=== PATIENT | male | born 1955 | race Caucasian/White ===

== ENCOUNTER 2019-04-29 12:09 | Emergency (ER) | payer MEDICARE, BC ==
[2019-04-29] MEDS ORDERED: MORPHINE SULFATE INJ 10 MG/ML VIAL IV ONE (13:04)
--- NOTE | 2019-04-29 13:20 | RAD ---
EXAM DESCRIPTION: Chest,1 View CLINICAL HISTORY: nv, vent pt COMPARISON: None. IMPRESSION: Single AP portable upright view of the chest shows mild enlargement of the cardiac silhouette without pulmonary vascular congestion. Tracheostomy tube appears in good positioning with tip at the level the clavicular heads. Right-sided PICC line is seen in place with tip in good positioning in the distal superior vena cava. Patient is mildly rotated on this exam. Lungs are normally aerated. Mild interstitial thickening in the left lower lobe could be chronic. No consolidation or acute appearing infiltrate is seen. No obvious pleural effusion or pneumothorax. Electronically signed by: Jovanni Fields MD 04/29/2019 1:18 PM CDT
[2019-04-29] MEDS ORDERED: KCL 20 MEQ/NS 1,000 ML IVS ONE (13:55)
[2019-04-29] MEDS ORDERED: fentaNYL CITRATE INJ 50 MCG/ML AMP IV ONE (14:06)
--- NOTE | 2019-04-29 16:48 | CT ---
EXAM DESCRIPTION: Abdoment/Pelvis w/o Contrast CLINICAL HISTORY: nv COMPARISON: None. TECHNIQUE: Noncontrast transaxial CT images of the abdomen and pelvis are obtained. This exam was performed according to our departmental dose-optimization program, which includes automated exposure control, adjustment of the mA and/or kV according to patient size and/or use of iterative reconstruction technique . FINDINGS: Images are moderately degraded by patient breathing motion artifact and streak artifact from the patient's arms. Visualized lung bases show areas of atelectasis or consolidation in the lower lobes left greater than right with small left pleural effusion. Severe emphysematous changes to lungs are seen. Given the limitations of a noncontrast exam the liver, spleen, pancreas, adrenal glands, and contracted gallbladder are unremarkable. Moderate vascular calcifications are seen. Multiple nonobstructing calcifications measuring less than 4 mm are seen in the calyces of the left kidney. 1.5 cm cortical cyst of the lower pole right kidney. No ureteral calcification or obstruction. Quinn catheter is seen in a contracted urinary bladder. Small amount of iatrogenic air in the urinary bladder. Prostate is mildly enlarged. Lower pelvis not well seen secondary to streak artifact from bilateral hip arthroplasties. The appendix is unremarkable. PEG tube is seen. Stomach is moderately distended with air and fluid. No wall thickening. Mildly dilated air-fluid filled loops of small bowel throughout the abdomen are seen. Colostomy in the left midabdomen. Garcia's pouch in the lower pelvis. Mild scattered diverticuli of the colon. The cecum is air-filled and mildly distended measuring 5.2 cm in the right upper quadrant. Osseous structures show no aggressive bony lesions. Gluteal calcifications adjacent to the right mid to inferior iliac bone and hip could represent sequela of prior trauma or hematoma. IMPRESSION: Air-fluid filled distention of the stomach and small bowel throughout the abdomen without definite transition point most likely represents ileus versus partial small bowel obstruction. Continued follow-up is recommended. Borderline dilated air-filled cecum. Colostomy in the left midabdomen. Nonobstructing bilateral nephrolithiasis. Bilateral lower lobe atelectasis or pneumonia left greater than right. Continued follow-up until resolution is recommended. Electronically signed by: Jovanni Fields MD 04/29/2019 4:46 PM CDT
[2019-04-29] MEDS ORDERED: PIPERACILLIN/TAZOBACTAM 3.375 GM in SODIUM CHLORIDE 0.9% 100ML 100 ML IVPB ONE (17:25)
[2019-04-29] MEDS ORDERED: METOPROLOL TARTRATE INJ 5 MG/5 ML VIAL IV ONE (17:26)
[2019-04-29] MEDS ORDERED: SODIUM CHLORIDE 0.9% 100ML 100 ML IVPB ONE (18:39)
[2019-04-29] MEDS ORDERED: PIPERACILLIN/TAZOBACTAM 3.375 GM VIAL IVPB ONE (18:39)
[2019-04-29 19:49] VITALS: O2SAT 96
[2019-04-29] MEDS ORDERED: ONDANSETRON INJ 4 MG/2 ML VIAL IV ONE (19:56)
--- NOTE | 2019-04-29 20:44 | ED.PDOC ---
History of Present Illness - General Chief Complaint: GI Problem Stated Complaint: vomiting Time Seen by Provider: 04/29/19 12:44 Source: patient Exam Limitations: clinical condition - History of Present Illness Initial Comments: the patient is a 63-year-old male presenting to emergency room secondary to nausea and vomiting for the better part of the morning. The patient is ventilator dependent. He is a recent admit to the local long-term care facility. Much of the details of his medical history is not known and we do not have previous imaging lab work her EKGs for comparison. He has apparently not had any fever. He does have a G-tube. He also has a ostomy. The patient apparently had a large stroke several months ago and was hospitalized and had a tracheostomy placed as well. He has chronic left-sided deficits but seems to move his right side fairly well. He appears to be mentating clearly. He is pleasant and cooperative. He does report significant back pain. Abdomen is initially significantly distended and tympanic. No point tenderness however. The patient's ostomy bag is very distended. it does not appear to be venting properly. He reports that was changed out yesterday. Discomfort in his abdomen did significantly improve when the ostomy bag was removed and his G-tube was uncapped. This did allow a copious amount of gas to be vented. The patient has not had any vomiting since. Timing/Duration: 4-6 hours Severity: moderate Worsening Factors: eating Associated Symptoms: malaise, nausea/vomiting Allergies/Adverse Reactions: Allergies Levofloxacin [From Levaquin] Allergy (Verified 04/29/19 12:33) Sulfa Antibiotics Allergy (Verified 04/29/19 12:33) Home Medications: Ambulatory Orders Amoxicillin & Pot Clavulanate [Augmentin Tab] 875 mg GT BID #14 tab 04/29/19 Ondansetron Odt [Zofran ODT] 4 mg PO Q8HR PRN #10 tab 04/29/19 Review of Systems - Review of Systems Review of Systems: 04/29/19 20:44 the patient does have numerous chronic problems including his long-standing low back pain. Constitutional: States: no symptoms reported EENTM: States: no symptoms reported Respiratory: States: no symptoms reported Cardiology: States: no symptoms reported Gastrointestinal/Abdominal: States: abdominal pain, nausea, vomiting Genitourinary: States: no symptoms reported - Quinn catheter is in place Musculoskeletal: States: back pain - chronic Skin: States: no symptoms reported Neurological: States: no symptoms reported Endocrine: States: no symptoms reported All other Systems: No Change from Baseline Past Medical History (General) - Patient Medical History Hx Seizures: No Hx Stroke: Yes Hx Asthma: No Hx Cardiac Disorders: Yes - atrial fibriallation Hx Hypertension: Yes Hx Diabetes: No Surgical History: other Family Medical History - Family History Mother Family History: No Known Physical Exam - Physical Exam General Appearance: Alert, Anxious, No apparent distress, Other - the patient does have a 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 Eye Exam: bilateral normal Ears, Nose, Throat: hearing grossly normal, normal ENT inspection Neck: full range of motion, supple, other - tracheostomy is in place. Respiratory: lungs clear, normal breath sounds, other - the patient is ventilator dependent. Cardiovascular/Chest: normal peripheral pulses, regular rate, rhythm, other - the patient does have trace edema to his extremities. Peripheral Pulses: radial,right: 2+, radial,left: 2+, dorsalis pedis,right: 2+, dorsalis pedis,left: 2+ Gastrointestinal/Abdominal: soft, other - abdomen is initially distended and tympanic and uncomfortable to palpation throughout. After venting of the G-tube and ostomy bag this does improve. Rectal Exam: other - Quinn catheter is in place. Extremity: normal range of motion - passive., non-tender, no calf tenderness, normal capillary refill, other - the patient has significant wasting on his left side. He does have trace edema to his extremities. Neurologic: [employer] II-XII nml as tested, alert, normal mood/affect, oriented x 3, other - flaccid paralysis of the left side Skin Exam: normal color Comments: Vital Signs - 24 hr 04/29/19 04/29/19 04/29/19 12:30 12:34 14:30 Temperature 97.6 F Pulse Rate [ 114 H left brachial] Respiratory 22 22 22 Rate Respiratory 22 22 Rate [Volume Control Data] Blood Pressure 126/68 [left brachial] O2 Sat by Pulse 92 L Oximetry 04/29/19 04/29/19 04/29/19 16:10 18:30 19:46 Temperature Pulse Rate [ 113 H left brachial] Respiratory 22 Rate Respiratory 22 22 Rate [Volume Control Data] Blood Pressure 152/93 [left brachial] O2 Sat by Pulse 96 Oximetry 04/29/19 04/29/19 20:00 20:29 Temperature Pulse Rate [ 113 H 112 H left brachial] Respiratory 22 22 Rate Respiratory Rate [Volume Control Data] Blood Pressure 144/77 144/87 [left brachial] O2 Sat by Pulse 96 Oximetry Progress - Progress Progress: 04/29/19 20:52 the patient is a 63-year-old male with a multitude of long-standing medical problems that presented primarily due to vomiting this morning. I believe the patient's primary problem was that his ostomy bag was not venting. This essentially gave a bowel obstruction picture, reflected on the CT scan that was done probably 10 minutes after the ostomy bag was decompressed.. Symptoms have greatly improved since changing out the ostomy bag and then venting his G- tube as well. He still has a little bit of queasiness but has not thrown up any since we did this. there is a question of a possible pneumonia at the left lung base. he received a dose of Zosyn here and is going to be placed on 7 days of Augmentin per G-tube. he does not appear to be having any respiratory difficulty. No difficulty with oxygenating over baseline. He does have very mild hypokalemia and did receive a dose of potassium in the IV here. He also received a liter of IV fluids for mild dehydration. He does appear to be tolerating at least small steady amounts in his G-tube at this point. Trickle feeds could be considered for the next day or 2 while his stomach is calming down. He'll be transferred back to the long-term care facility. The patient also seems to have some significant chronic back pain. I do not see any pain medications on the medication list that we received from the alf. This may need to be addressed longer term with the facility doctor. There was some question of him having some opiate withdrawal as apparently he had been receiving opiates at the facility that he was at prior. He appears to be doing well currently. We will try and get him doses of most of his evening medications per G-tube here before he goes back. we did have the patient in the emergency room for an extended period of time in order to make sure that he would do well going back to his long-term care facility. 04/29/19 20:58 09/12/19 20:59 04/29/19 20:59 [email or web address] [id number] - Results/Orders Results/Orders: chest x-ray shows no definitive new infiltrate. PICC line is in place. CT of abdomen and pelvis shows surgical changes. air and fluid levels are consistent with either partial small bowel obstruction or ileus. No obvious full-blown obstruction. No abscess.there is bilateral lower lobe atelectasis versus infiltrate with the left being greater than the right. EKG shows left axis deviation. Sinus tachycardia 114 bpm. Mild T-wave inversion in aVL. Early right bundle branch block. Poor R-wave progression. Mild left atrial dilation. No definitive ST segment or T-wave changes indicative of acute ischemia. This is the only EKG on record. Laboratory Tests 04/29/19 04/29/19 04/29/19 13:01 13:01 13:01 WBC 12.4 H RBC 3.83 L Hgb 10.4 L Hct 32.3 L MCV 84.5 MCH 27.1 MCHC 32.0 L RDW 16.6 H Plt Count 552 H MPV 7.6 Absolute Neuts (auto) 10.70 H Absolute Lymphs (auto) 1.10 Absolute Monos (auto) 0.50 Absolute Eos (auto) 0.00 Absolute Basos (auto) 0.10 Neutrophils % 86.5 H Lymphocytes % 8.8 L Monocytes % 4.0 Eosinophils % 0.1 L Basophils % 0.6 PT INR PTT (SP) Sodium 139 Potassium 3.3 L Chloride 90 L Carbon Dioxide 34 H Anion Gap 18.3 H BUN 20 H Creatinine 0.43 L BUN/Creatinine Ratio 46.5 H Random Glucose 183 H Serum Osmolality 284.8 Lactic Acid 1.1 Calcium 9.3 Magnesium 2.1 Total Bilirubin 0.4 AST 24 ALT 25 Alkaline Phosphatase 156 H Creatine Kinase 26 L CK-MB (CK-2) 2.0 CK-MB (CK-2) % Not Reportable Troponin I < 0.02 B-Natriuretic Peptide 141.0 H Serum Total Protein 8.0 Albumin 2.9 L Globulin 5.1 H Albumin/Globulin Ratio 0.6 L Amylase 39 Lipase 29 Urine Color Urine Appearance Urine pH Ur Specific [place] Urine Protein Urine Glucose (UA) Urine Ketones Urine Blood Urine Nitrite Urine Bilirubin Urine Urobilinogen Ur Leukocyte Esterase Urine RBC Urine WBC Ur Epithelial Cells Amorphous Sediment Urine Bacteria 04/29/19 04/29/19 13:01 14:25 WBC RBC Hgb Hct MCV MCH MCHC RDW Plt Count MPV Absolute Neuts (auto) Absolute Lymphs (auto) Absolute Monos (auto) Absolute Eos (auto) Absolute Basos (auto) Neutrophils % Lymphocytes % Monocytes % Eosinophils % Basophils % PT 10.5 INR 1.05 PTT (SP) 28.9 Sodium Potassium Chloride Carbon Dioxide Anion Gap BUN Creatinine BUN/Creatinine Ratio Random Glucose Serum Osmolality Lactic Acid Calcium Magnesium Total Bilirubin AST ALT Alkaline Phosphatase Creatine Kinase CK-MB (CK-2) CK-MB (CK-2) % Troponin I B-Natriuretic Peptide Serum Total Protein Albumin Globulin Albumin/Globulin Ratio Amylase Lipase Urine Color Yellow Urine Appearance Clear Urine pH >= 9.0 H* Ur Specific [place] 1.010 Urine Protein 100 H Urine Glucose (UA) Negative Urine Ketones Negative Urine Blood Negative Urine Nitrite Negative Urine Bilirubin Negative Urine Urobilinogen 0.2 Ur Leukocyte Esterase Negative Urine RBC 0-1 Urine WBC 0-1 Ur Epithelial Cells 0 Amorphous Sediment 2+ Urine Bacteria 0 Departure - Departure Clinical Impression: Ventilator associated pneumonia, Hypokalemia Nausea & vomiting Qualifiers: Vomiting type: unspecified Vomiting Intractability: non-intractable Qualified Code(s): R11.2 - Nausea with vomiting, unspecified Disposition: Discharge to SNF Condition: Serious Departure Forms: ED Discharge - Pt. Copy, Patient Portal Self Enrollment Instructions: DI for Gastritis, Pneumonia, Adult (DC) Diet: other Activity: increase activity as tolerated Referrals: DAILY QUINONES [Primary Care Provider] - 1-2 Days Prescriptions: Ondansetron Odt [Zofran ODT] 4 mg PO Q8HR PRN #10 tab PRN Reason: Nausea--Moderate Amoxicillin & Pot Clavulanate [Augmentin Tab] 875 mg GT BID #14 tab Home Medications: Ambulatory Orders Amoxicillin & Pot Clavulanate [Augmentin Tab] 875 mg GT BID #14 tab 04/29/19 Ondansetron Odt [Zofran ODT] 4 mg PO Q8HR PRN #10 tab 04/29/19 Additional Instructions: the patient is a 63-year-old male with a multitude of long-standing medical problems that presented primarily due to vomiting this morning. I believe the patient's primary problem was that his ostomy bag was not venting. This essentially gave a bowel obstruction picture, reflected on the CT scan that was done probably 10 minutes after the ostomy bag was decompressed.. Symptoms have greatly improved since changing out the ostomy bag and then venting his G- tube as well. He still has a little bit of queasiness but has not thrown up any since we did this. there is a question of a possible pneumonia at the left lung base. he received a dose of Zosyn here and is going to be placed on 7 days of Augmentin per G-tube. he does not appear to be having any respiratory difficulty. No difficulty with oxygenating over baseline. He does have very mild hypokalemia and did receive a dose of potassium in the IV here. He also received a liter of IV fluids for mild dehydration. He does appear to be tolerating at least small steady amounts in his G-tube at this point. Trickle feeds could be considered for the next day or 2 while his stomach is calming down. He'll be transferred back to the long-term care facility. The patient also seems to have some significant chronic back pain. I do not see any pain medications on the medication list that we received from the alf. This may need to be addressed longer term with the facility doctor. There was some question of him having some opiate withdrawal as apparently he had been receiving opiates at the facility that he was at prior. He appears to be doing well currently. We will try and get him doses of most of his evening medications per G-tube here before he goes back. we did have the patient in the emergency room for an extended period of time in order to make sure that he would do well going back to his long-term care facility.
[2019-04-29] MEDS ORDERED: PANTOPRAZOLE SODIUM IV 40 MG VIAL IV ONE (20:48)
[2019-04-29] MEDS ORDERED: HYDROcodone 7.5MG/APAP 325MG 1 EA TAB GT ONE (21:02)
[2019-04-29 21:46] VITALS: BP 142/100; TEMP 97.2
[2019-04-30] MEDS ORDERED: CARVEDILOL 3.125 MG TAB PO ONE (21:02)
== END 2019-04-29 21:40 ==
LOC: ER 12:09
DX: J95.851 Ventilator associated pneumonia (principal); R11.2 Nausea with vomiting, unspecified; E87.6 Hypokalemia; E86.0 Dehydration; R00.0 Tachycardia, unspecified; I45.10 Unspecified right bundle-branch block; I48.91 Unspecified atrial fibrillation; I10 Essential (primary) hypertension; Z93.1 Gastrostomy status; Z99.11 Dependence on respirator [ventilator] status; Z86.73 Personal history of transient ischemic attack (TIA), and cerebral infarction without residual deficits; Z88.1 Allergy status to other antibiotic agents; Z88.2 Allergy status to sulfonamides
CPT/HCPCS: 36415; 71045; 74176; 80053; 81001; 82150; 82550; 82553; 83605; 83690; 83735; 83880; 84484; 85025; 85610; 85730; 93005; 94002; 94770; J2405; J2543; J3010; J3480; J7050

== ENCOUNTER 2019-06-03 07:19 | Emergency (ER) | payer MEDICARE ==
[~2019-06-03 07:19] MED LIST: MIDAZOLAM INJ 5 MG/5 ML VIAL ONE; VECURONIUM BROMIDE 10 MG VIAL IV ONE; WATER FOR INJ 10 ML VIAL INJ ONE
[2019-06-03] MEDS ORDERED: SODIUM CHLORIDE 0.9% (FLUSH) 10 ML SYG IV PRN (07:24)
[2019-06-03] MEDS ORDERED: METOPROLOL TARTRATE INJ 5 MG/5 ML VIAL IV ONE (07:41)
--- NOTE | 2019-06-03 07:49 | RAD ---
CHEST, ONE VIEW XR CLINICAL HISTORY: Altered mental status. COMPARISON: Chest 04/29/2019 TECHNIQUE: AP Chest. FINDINGS: There is a large left pneumothorax with left hemidiaphragm depression indicative of tension. Significant collapse of the left lung. Right lung is clear. Right lung is hyperinflated. Heart is normal in size. No pulmonary edema. The tracheostomy is intact. The bones appear intact. IMPRESSION: 1. Large left tension pneumothorax. 06/03/2019 7:49 AM RFID ANALYST
--- NOTE | 2019-06-03 07:52 | CT ---
PROVIDED CLINICAL HISTORY/REASON FOR EXAM: AMS TECHNIQUE: Volumetric CT data of the brain was obtained without intravenous contrast. This exam was performed according to our departmental dose-optimization program, which includes automated exposure control, adjustment of the mA and/or kV according to patient size and/or use of iterative reconstruction technique. COMPARISON: None available. FINDINGS: Large area of right MCA distribution encephalomalacia, compatible with known chronic infarction. There is asymmetric dilatation of the right lateral ventricle measuring approximately 4.4 cm, when compared with the left at 2.2 cm. There is rightward midline shift of approximately 1.1 cm. There is no definite acute infarct or hemorrhage identified. Right frontal temporal craniotomy. No mass identified. The visualized paranasal sinuses are unremarkable. IMPRESSION: 1. Chronic right MCA distribution infarction and associated frontotemporal craniotomy. However there is asymmetric enlargement of the right lateral ventricle of uncertain chronicity. Findings may reflect ex vacuo dilatation or hydrocephalus (obstructive etiologies not excluded). 2. No definite acute infarction or hemorrhage identified. 3. Rightward midline shift of approximately 1.1 cm. Findings discussed with Dr. Hawkins at 7:45 AM 06/03/2019 Electronically signed by: Sony Salvador MD 06/03/2019 7:50 AM CDT
--- NOTE | 2019-06-03 07:56 | RAD ---
CHEST, ONE VIEW XR CLINICAL HISTORY: Altered mental status. COMPARISON: Chest 04/29/2019 TECHNIQUE: AP Chest. FINDINGS: There is a large left pneumothorax with left hemidiaphragm depression indicative of tension. Significant collapse of the left lung. Right lung is clear. Right lung is hyperinflated. Heart is normal in size. No pulmonary edema. The tracheostomy is intact. The bones appear intact. There are gastric shadows over the left hemidiaphragm with a gastrostomy tube. IMPRESSION: 1. Large left tension pneumothorax. Findings directly communicated to Dr. Antolin Hawkins at 0752 hours on 06/03/2019. Electronically signed by: Penny Mcdaniels DO 06/03/2019 7:54 AM CDT
[2019-06-03] MEDS ORDERED: POVIDONE IODINE 10 % 15 ML UD TOP ONE (08:03)
[2019-06-03] MEDS ORDERED: LIDOCAINE 2% W/ EPINEPHRINE 20 ML VIAL INJ ONE (08:09)
--- NOTE | 2019-06-03 08:41 | RAD ---
EXAM DESCRIPTION: Chest,1 View CLINICAL HISTORY: 63 years Male, post chest tube COMPARISON: None. TECHNIQUE: AP portable chest. FINDINGS: Heart size is large with centrally increased pulmonary vascularity. Tracheostomy tube tip is at the level of clavicles approximately 8.7 cm above the alvin. Calcified granulomas in the left upper lobe. Patchy infiltrate is seen in the left lower lobe with some spiculated areas in the lingula and peripheral left lower lobe. Patient had a CT of the abdomen which included the lower chest on April 29, 2019 which showed patchy consolidation of both lower lobes consistent with pneumonia possibly aspiration. No focal mass was seen to suggest malignancy. Left pneumothorax has been evacuated. A left chest tube is been placed with tip in the upper left thorax. Trace pleural fluid blunts the left costophrenic angle. Bones are unremarkable. IMPRESSION: Left chest tube placement with evacuation of left pneumothorax. Infiltrate in the left lower lobe. Electronically signed by: Bret Lennon MD 06/03/2019 8:40 AM CDT
[2019-06-03] MEDS ORDERED: PIPERACILLIN/TAZOBACTAM 4.5 GM in SODIUM CHLORIDE 0.9% 100ML 100 ML IVPB ONE (08:43)
[2019-06-03] MEDS ORDERED: PIPERACILLIN/TAZOBACTAM 3.375 GM VIAL IVPB ONE ×2 (08:47→08:50)
[2019-06-03] MEDS ORDERED: PIPERACILLIN/TAZOBACTAM 3.375 GM in SODIUM CHLORIDE 0.9% 100ML 100 ML IVPB ONE (08:49)
[2019-06-03] MEDS ORDERED: SODIUM CHLORIDE 0.9% 100ML 100 ML IVPB ONE (08:50)
--- NOTE | 2019-06-03 08:55 | ED.PDOC ---
History of Present Illness - General Chief Complaint: Neuro Symptoms/Deficits Stated Complaint: AMS, elevated BP Time Seen by Provider: 06/03/19 07:24 Source: patient - patient is unable to speak with his trach, but he is able to mouth questions and answer simple questions, RN notes reviewed, Vital Signs reviewed, EMS notes reviewed, family - Exam Limitations: clinical condition, language barrier - secondary to being trached - History of Present Illness Initial Comments: patient is a 63-year-old male who presents from the [facility] with shelter complaint of altered mental status and the tissue over his right craniotomy sticking out much further than usual. On arrival patient is an extremis. Patient's heart rate was in the 140s, blood pressure was 230/140. Patient was able to look around and mouth simple questions but he was confused. We rapidly obtained a CT and chest x-ray on the patient and IV access. Patient with no breath sounds on the left hand sides of the left anterior chest wall wasweekly prepped with Betadine and a 16-gauge Angiocath was introduced into the pleural and there was an immediate styles of air. She was then wrapped and 20 Mauritian c hest tube was placed on the left. Please see procedure documentation. Timing/Duration: unsure Severity: severe Improving Factors: nothing Worsening Factors: nothing Associated Symptoms: other - unable to obtain any symptoms due to patient's condition. Allergies/Adverse Reactions: Allergies Levofloxacin [From Levaquin] Allergy (Verified 04/29/19 12:33) Sulfa Antibiotics Allergy (Verified 04/29/19 12:33) Home Medications: Ambulatory Orders Amoxicillin & Pot Clavulanate [Augmentin Tab] 875 mg GT BID #14 tab 04/29/19 Ondansetron Odt [Zofran ODT] 4 mg PO Q8HR PRN #10 tab 04/29/19 Review of Systems - Review of Systems Review of Systems: 06/03/19 08:55 unable to obtain a review of systems secondary to patient's clinical condition. patient was unable to speak to me but only able to mouth simple words. Patient did state he was short of breath. Unable to Obtain Due To: condition - trach, clinical condition Past Medical History (General) - Patient Medical History Hx Seizures: No Hx Stroke: Yes Hx Asthma: No Hx Cardiac Disorders: Yes - atrial fibriallation Hx Hypertension: Yes Hx Diabetes: No Surgical History: other - status post right craniotomy - Vaccination History Hx Influenza Vaccination: - Unknown Hx Pneumococcal Vaccination: - Unknown - Social History Hx Alcohol Use: No - Activities of Daily Living Detention/Assisted Living (if applicable):: [facility] Family Medical History - Family History Mother Family History: Unknown Living Status: Unknown Physical Exam - Physical Exam General Appearance: Agitated, Alert, Anxious, Emaciated, Frail, Obvious distress, Ill Appearing Eye Exam: bilateral normal Ears, Nose, Throat: hearing grossly normal, normal ENT inspection, other - mucous membrane Neck: non-tender, full range of motion, supple, other - trach in place Respiratory: chest non-tender, respiratory distress, decreased breath sounds - no breath sounds on the left, accessory muscle use - intercostal retractions, rhonchi - rhonchi diffusely on the right Cardiovascular/Chest: normal peripheral pulses, no edema, no murmur, tachycardia Peripheral Pulses: radial,right: 2+, radial,left: 2+ Gastrointestinal/Abdominal: normal bowel sounds, non tender, soft, other - colostomy bag in place Back Exam: no CVA tenderness, no vertebral tenderness Extremity: non-tender, no pedal edema, other - patient with hand contractures bilaterally. Neurologic: alert, other - patient oriented to self and place. Skin Exam: normal color, warm/dry Progress - Progress Progress: differential diagnosis: Pneumonia, malignant hypertension, sepsis, cute [place] among others. 06/03/19 09:07 patient brought from the [facility] in extremis. He was quickly assessed and determined to have a pneumothorax on the left. This was evacuated and then a chest tube was placed. Signs improved markedly after placement of the chest tube. Labs show that he has an elevated white count of over 25,000 unknown if there is a left shift but patient was afebrile here but on repeat chest x-ray after placement of the chest tube patient was noted to have a left lower lobe pneumonia. Patient was discussed with the ED physician, Dr. Mary, at [facility] who has accepted the patient for transfer. Transferred due to the necessity of needing a neurosurgeon which we do not have here at this facility. Patient is stable for transfer. Antolin Hawkins M.D. #[id number] - Results/Orders Results/Orders: 06/03/19 07:24 IV Care:Saline Lock per Protoc QSHIFT Telemetry .ONCE Sodium Chloride 0.9% (Flush) [Saline Flush Syringe] 10 ml IV PRN PRN EKG Stat Pulse Ox Stat 06/03/19 07:25 EKG Assessment ONCE Pulse Oximetry Assessment DAILY 06/03/19 07:50 BLOOD CULTURE Stat 06/03/19 08:43 Piperacillin/Tazobactam [Zosyn] 4.5 gm Sodium Chloride 0.9% 100Ml [NS (NACL 0.9%) 100ml] 100 ml IVPB ONCE 06/03/19 08:49 Piperacillin/Tazobactam [Zosyn] 3.375 gm Sodium Chloride 0.9% 100Ml [NS (NACL 0.9%) 100ml] 100 ml IVPB ONCE 06/03/19 08:50 URINALYSIS Stat Laboratory Results - last 24 hr 06/03/19 06/03/19 07:50 07:50 WBC 25.3 H* RBC 4.75 Hgb 12.3 L Hct 39.0 L MCV 82.1 MCH 26.0 L MCHC 31.7 L RDW 17.6 H Plt Count 676 H MPV 8.1 Absolute Neuts (auto) Not Reportable Absolute Lymphs (auto) Not Reportable Absolute Monos (auto) Not Reportable Absolute Eos (auto) Not Reportable Neutrophils % Not Reportable Neutrophils % (Manual) 77.0 Lymphocytes % Not Reportable Lymphocytes % (Manual) 21.0 Monocytes % Not Reportable Monocytes % (Manual) 2.0 Eosinophils % Not Reportable Basophils % Not Reportable PT 10.3 INR 1.03 PTT (SP) 24.5 Sodium 134 L Potassium 3.9 Chloride 94 L Carbon Dioxide 26 Anion Gap 17.9 BUN 13 Creatinine 0.52 L BUN/Creatinine Ratio 25.0 H Random Glucose 250 H Serum Osmolality 276.8 Calcium 9.0 Magnesium 2.0 Total Bilirubin 0.4 Direct Bilirubin < 0.1 Indirect Bilirubin 0.3 AST 25 ALT 21 Alkaline Phosphatase 109 Creatine Kinase 61 CK-MB (CK-2) 4.0 CK-MB (CK-2) % Not Reportable Troponin I 0.03 B-Natriuretic Peptide 173.0 H Serum Total Protein 7.[address] HEAD. PROVIDED CLINICAL HISTORY/REASON FOR EXAM: AMS TECHNIQUE: Volumetric CT data of the brain was obtained without intravenous contrast. This exam was performed according to our departmental dose-optimization program, which includes automated exposure control, adjustment of the mA and/or kV according to patient size and/or use of iterative reconstruction technique. COMPARISON: None available. FINDINGS: Large area of right MCA distribution encephalomalacia, compatible with known chronic infarction. There is asymmetric dilatation of the right lateral ventricle measuring approximately 4.4 cm, when compared with the left at 2.2 cm. There is rightward midline shift of approximately 1.1 cm. There is no definite acute infarct or hemorrhage identified. Right frontal temporal craniotomy. No mass identified. The visualized paranasal sinuses are unremarkable. IMPRESSION: 1. Chronic right MCA distribution infarction and associated frontotemporal craniotomy. However there is asymmetric enlargement of the right lateral ventricle of uncertain chronicity. Findings may reflect ex vacuo dilatation or hydrocephalus (obstructive etiologies not excluded). 2. No definite acute infarction or hemorrhage identified. 3. Rightward midline shift of approximately 1.1 cm. Findings discussed with Dr. Hawkins at 7:45 AM 06/03/2019 Electronically signed by: Sony Salvador MD 06/03/2019 7:50 AM CHEST, ONE VIEW XR CLINICAL HISTORY: Altered mental status. COMPARISON: Chest 04/29/2019 TECHNIQUE: AP Chest. FINDINGS: There is a large left pneumothorax with left hemidiaphragm depression indicative of tension. Significant collapse of the left lung. Right lung is clear. Right lung is hyperinflated. Heart is normal in size. No pulmonary edema. The tracheostomy is intact. The bones appear intact. There are gastric shadows over the left hemidiaphragm with a gastrostomy tube. IMPRESSION: 1. Large left tension pneumothorax. Findings directly communicated to Dr. Antolin Hawkins at 0752 hours on 06/03/2019. Electronically signed by: Penny Mcdaniels DO 06/03/2019 7:54 AM EXAM DESCRIPTION: Chest,1 View CLINICAL HISTORY: 63 years Male, post chest tube COMPARISON: None. TECHNIQUE: AP portable chest. FINDINGS: Heart size is large with centrally increased pulmonary vascularity. Tracheostomy tube tip is at the level of clavicles approximately 8.7 cm above the alvin. Calcified granulomas in the left upper lobe. Patchy infiltrate is seen in the left lower lobe with some spiculated areas in the lingula and peripheral left lower lobe. Patient had a CT of the abdomen which included the lower chest on April 29, 2019 which showed patchy consolidation of both lower lobes consistent with pneumonia possibly aspiration. No focal mass was seen to suggest malignancy. Left pneumothorax has been evacuated. A left chest tube is been placed with tip in the upper left thorax. Trace pleural fluid blunts the left costophrenic angle. Bones are unremarkable. IMPRESSION: Left chest tube placement with evacuation of left pneumothorax. Infiltrate in the left lower lobe. Electronically signed by: Bret Lennon MD 06/03/2019 8:40 Procedures - Chest Tube Left Mid-Axillary Chest Size of Mauritian Tube (cm): 20 Chest Tube Procedure Prep: betadine prep, sterile drapes applied, sterile dressing applied Anesthesia: 1% Lidocaine w/ Epi Volume Anesthetic (cc's): 7 Styles of Air Mingo: Yes Number of Attempts: 1 Time of Successful Intubation: 08:30 Tube Drainage: see nurses notes Tube Sutured to Skin: Yes Post Procedure CXR?: Yes Progress: patient noted to have no breath sounds on the left hand side. Chest x-ray confirmed a pneumothorax. Concern for tension pneumothorax. The pneumothorax was decompressed with a 16-gauge Angiocath to the left midclavicular anterior chest wall over rib #3. There was a styles of air. Then a definitive chest tube was placed. Please see procedure note. Departure - Departure Clinical Impression: Tension pneumothorax, spontaneous Altered mental status Qualifiers: Altered mental status type: unspecified Qualified Code(s): R41.82 - Altered mental status, unspecified Leukocytosis Qualifiers: Leukocytosis type: unspecified Qualified Code(s): D72.829 - Elevated white blood cell count, unspecified Time of Disposition: 08:30 Disposition: Transfer to Hospital Condition: Serious Referrals: DAILY QUINONES [Primary Care Provider] - 1-2 Weeks Home Medications: Ambulatory Orders Amoxicillin & Pot Clavulanate [Augmentin Tab] 875 mg GT BID #14 tab 04/29/19 Ondansetron Odt [Zofran ODT] 4 mg PO Q8HR PRN #10 tab 04/29/19 Critical Care Note - Critical Care Note Total Time (mins): 80 - this did not include any time spent performing procedures. Transfer to Outside Facility - Transfer Information Decision to Transfer Date: 06/03/19 Decision to Transfer Time: 08:20 Reason for Transfer: specialized care not available Accepting Provider:: Dr. MARY Accepting Facility: [facility]
[2019-06-03 09:01] VITALS: BP 193/103
[2019-06-03 10:10] VITALS: TEMP 97.9; O2SAT 100
== END 2019-06-03 09:05 | disposition short-term general hospital (02) ==
LOC: ER 07:19
DX: J93.0 Spontaneous tension pneumothorax (principal); R41.82 Altered mental status, unspecified; D72.829 Elevated white blood cell count, unspecified; J18.9 Pneumonia, unspecified organism; I48.91 Unspecified atrial fibrillation; I10 Essential (primary) hypertension; Z98.890 Other specified postprocedural states; Z86.73 Personal history of transient ischemic attack (TIA), and cerebral infarction without residual deficits; Z88.1 Allergy status to other antibiotic agents; Z88.2 Allergy status to sulfonamides
CPT/HCPCS: 36415; 36416; 70450; 71045; 80048; 80076; 81001; 82550; 82553; 83605; 83880; 84484; 85025; 85610; 85730; 87040; 87086; 93005; 94002; A4216; J2250; J2543; J7050

== ENCOUNTER → 2019-06-12 | Outpatient (CLI) | payer MEDICARE | LOC: GOCC 16:00 | PROVIDERS: ATTEND Internal Medicine | DX: R09.3 Abnormal sputum (principal) ==

== ENCOUNTER 2019-06-25 08:38 | Emergency (ER) | payer MEDICARE ==
[2019-06-25] MEDS ORDERED: IPRATROPIUM/ALBUTEROL 3 ML VIAL NEB ONE ×3 (08:49→12:41)
[2019-06-25] MEDS ORDERED: MORPHINE SULFATE INJ 10 MG/ML VIAL IV ONE (08:51)
--- NOTE | 2019-06-25 09:01 | RAD ---
EXAM DESCRIPTION: Chest,1 View CLINICAL HISTORY: 63 years Male, sob with ventilator COMPARISON: 06/03/2019 TECHNIQUE: Single frontal view of the chest. IMPRESSION: Stable size cardiac silhouette. Partially calcified aorta. Endotracheal tube is in stable position terminating approximately 9 cm above the alvin. Hyperexpanded lungs. Right lung apex and right costophrenic angle is not included within the image margins. Improved consolidation in the lateral left lung base. Residual blunting of left costophrenic angle which may represent scarring versus pleural effusion. Interval removal of left-sided chest tube with no residual pneumothorax on the left. Thoracic spondylosis. Electronically signed by: Dae Perdue MD 06/25/2019 9:00 AM [employer]
[2019-06-25] MEDS ORDERED: ALBUTEROL SULFATE 2.5 MG/3 ML VIAL NEB ONE (10:08)
[2019-06-25 10:27] VITALS: O2SAT 95
--- NOTE | 2019-06-25 10:43 | ED.PDOC ---
History of Present Illness - General Chief Complaint: Respiratory Problem Stated Complaint: Shortness of breath, chest discomfort Time Seen by Provider: 06/25/19 08:39 Source: patient Exam Limitations: no limitations - History of Present Illness Initial Comments: the patient is a 63-year-old male last seen one time previously presenting to the emergency room secondary to respiratory distress. The patient was having significant shortness of breath. He was having significant tachycardia with heart rates up into the 140s. The patient's obviously anxious and anxiety has been a problem before. His abdomen is distended as well. He is moving very little air bilaterally. They apparently had some difficulty with some of the equipment at the [facility] where he is on a ventilator. The difficulty has apparently been iron doubt at this point. Additionally EMS removed a plug from his airway with suction. respiratory here removed a large plug from around the trach orally. This allowed for the tracheostomy to seal and the patient to be ventilated more adequately. With these measures and the addition of a couple of DuoNeb treatments the patient is breathing much more easily and is resting comfortably. Timing/Duration: 1-3 hours Severity: severe Improving Factors: medication Worsening Factors: nothing Associated Symptoms: chest pain - right sided where he had the previous pneumothorax, diaphoresis, shortness of breath Allergies/Adverse Reactions: Allergies Levofloxacin [From Levaquin] Allergy (Verified 06/25/19 08:46) Sulfa Antibiotics Allergy (Verified 06/25/19 08:46) Home Medications: Ambulatory Orders Amoxicillin & Pot Clavulanate [Augmentin Tab] 875 mg GT BID #14 tab 04/29/19 Ondansetron Odt [Zofran ODT] 4 mg PO Q8HR PRN #10 tab 04/29/19 Review of Systems - Review of Systems Constitutional: States: no symptoms reported EENTM: States: no symptoms reported Respiratory: States: see HPI Cardiology: States: chest pain - ight-sided Gastrointestinal/Abdominal: States: see HPI Genitourinary: States: no symptoms reported Musculoskeletal: States: no symptoms reported Skin: States: no symptoms reported Neurological: States: anxiety Endocrine: States: no symptoms reported All other Systems: No Change from Baseline Past Medical History (General) - Patient Medical History Hx Seizures: No Hx Stroke: Yes Hx Asthma: No Hx Cardiac Disorders: Yes - atrial fib Hx Hypertension: Yes Hx Diabetes: No - Vaccination History Hx Influenza Vaccination: - Unknown Hx Pneumococcal Vaccination: - Unknown - Social History Hx Tobacco Use: Yes Hx Alcohol Use: No - Activities of Daily Living Detention/Assisted Living (if applicable):: [facility] Family Medical History - Family History Mother Family History: Unknown Living Status: Unknown Physical Exam - Physical Exam General Appearance: Alert, Anxious, Obvious distress, Ill Appearing, Other - he patient is diaphoretic and highly anxious. previous surgeries on the skull was noted. Eye Exam: bilateral normal Ears, Nose, Throat: hearing grossly normal Neck: non-tender, supple, other - racheostomy is in place. Respiratory: respiratory distress, accessory muscle use, other - wheezing with very little air movement. Cardiovascular/Chest: normal peripheral pulses, no edema, tachycardia - inus tachycardia on telemetry Peripheral Pulses: radial,right: 2+, radial,left: 2+ Gastrointestinal/Abdominal: soft, other - abdomen is distended. Colostomy bag is taut with air. Surgery sites noted. Rectal Exam: deferred Extremity: normal range of motion - given his chronic state, no pedal edema, other Neurologic: alert, oriented x 3, other - he patient is highly agitated and anxious. Chronic neurological changes from his previous insult. Skin Exam: normal color Comments: Vital Signs - 24 hr 06/25/19 06/25/19 06/25/19 08:49 08:53 10:00 Pulse Rate [ 110 H 110 H 90 Monitor] Respiratory 22 22 22 Rate Blood Pressure 188/96 63/42 [L brachial] O2 Sat by Pulse 93 L 95 Oximetry blood pressures have come back up to the 90s over 60s. The low blood pressure was with the dosing of morphine.he does have a history of low blood pressure chronically, except when he gets worked up. Progress - Progress Progress: 06/25/19 10:52 the patient is a 63-year-old male brought in by EMS secondary to respiratory distress. The patient is on a ventilator but they were having dif ficulty ventilating him due to some technical difficulties with her equipment along with the fact that the patient had several mucous plugs that had to be removed. These were removed by EMS and by respiratory therapy here. Additionally the patient did much better after a couple of DuoNeb treatments. He is resting comfortably. He did have a low blood pressure reading after a 2 mg dose of morphine. For future reference, dosing at 1 mg a suffice. Blood pressures have corrected. The patient is resting comfortably. the patient did have significant abdominal distention upon arrival which may have contributed to the sensation of shortness of breath. We did vent his abdominal ostomies and this did help significantly with him resting more comfortably. No evidence of other acute pathology at this time. He will be allowed to return to the long- term care facility. ER warnings were given. Follow up with the facility doctor early next week. I would recommend a breathing treatment at least every 6 hours on this patient in general. He does appear to respond significantly to them. [email or web address] [id number] 06/25/19 10:56 critical care time spent on the patient is 40 minutes for respiratory distress excluding otherwise billable procedures. - Results/Orders Results/Orders: chest x-ray shows no pneumothorax. No new infiltrate. No obvious new chest pathology. Tracheostomy is in place. EKG: Initial EKGs were more difficult to read secondary to patient tremor and anxiety. Initial EKG showed a heart rate of 109. Sinus tachycardia. Chronic mild left axis deviation. No definitive ST segment changes indicative of ischemia. Mild early right bundle branch block. Slow R-wave progression. This is consistent with previous EKGs. Repeat EKG obtained one hour later when the patient was relaxed showed a normal sinus rhythm at 93 bpm. No other changes on the EKG when compared to previous. No evidence of acute ischemia. Laboratory Results - last 24 hr 06/25/19 06/25/19 06/25/19 09:12 09:12 09:12 WBC 13.7 H RBC 4.27 L Hgb 10.9 L Hct 34.3 L MCV 80.5 MCH 25.6 L MCHC 31.8 L RDW 18.4 H Plt Count 482 H MPV 8.2 Absolute Neuts (auto) 10.90 H Absolute Lymphs (auto) 1.50 Absolute Monos (auto) 0.90 H Absolute Eos (auto) 0.20 Absolute Basos (auto) 0.20 H Neutrophils % 79.8 H Lymphocytes % 10.6 L Monocytes % 6.9 Eosinophils % 1.6 Basophils % 1.1 PT 10.1 INR 1.01 PTT (SP) 25.9 Sodium 134 L Potassium 4.6 Chloride 93 L Carbon Dioxide 26 Anion Gap 19.6 H BUN 30 H Creatinine 0.65 BUN/Creatinine Ratio 46.2 H Random Glucose 214 H Serum Osmolality 280.8 Lactic Acid Calcium 9.7 Magnesium 2.0 Total Bilirubin 0.4 AST 18 ALT 23 Alkaline Phosphatase 91 Creatine Kinase 33 L CK-MB (CK-2) 1.8 CK-MB (CK-2) % Not Reportable Troponin I < 0.02 B-Natriuretic Peptide 106.0 H Serum Total Protein 8.1 Albumin 3.2 Globulin 4.9 H Albumin/Globulin Ratio 0.7 L 06/25/19 09:12 WBC RBC Hgb Hct MCV MCH MCHC RDW Plt Count MPV Absolute Neuts (auto) Absolute Lymphs (auto) Absolute Monos (auto) Absolute Eos (auto) Absolute Basos (auto) Neutrophils % Lymphocytes % Monocytes % Eosinophils % Basophils % PT INR PTT (SP) Sodium Potassium Chloride Carbon Dioxide Anion Gap BUN Creatinine BUN/Creatinine Ratio Random Glucose Serum Osmolality Lactic Acid 1.1 Calcium Magnesium Total Bilirubin AST ALT Alkaline Phosphatase Creatine Kinase CK-MB (CK-2) CK-MB (CK-2) % Troponin I B-Natriuretic Peptide Serum Total Protein Albumin Globulin Albumin/Globulin Ratio Departure - Departure Clinical Impression: Respiratory distress, Ventilator dependent, Anxiety about health, Mucus plugging of bronchi Reactive airway disease Qualifiers: Asthma severity: severe Asthma persistence: persistent Asthma complication type: with acute exacerbation Qualified Code(s): J45.51 - Severe persistent asthma with (acute) exacerbation Disposition: Discharge to SNF Condition: Poor Departure Forms: ED Discharge - Pt. Copy, Patient Portal Self Enrollment Instructions: Intubation and Mechanical Ventilation (DC) Diet: other Referrals: DAILY QUINONES [Primary Care Provider] - 1-5 Days Home Medications: Ambulatory Orders Amoxicillin & Pot Clavulanate [Augmentin Tab] 875 mg GT BID #14 tab 04/29/19 Ondansetron Odt [Zofran ODT] 4 mg PO Q8HR PRN #10 tab 04/29/19 Additional Instructions: the patient is a 63-year-old male brought in by EMS secondary to respiratory distress. The patient is on a ventilator but they were having difficulty ventilating him due to some technical difficulties with her equipment along with the fact that the patient had several mucous plugs that had to be removed. These were removed by EMS and by respiratory therapy here. Additionally the patient did much better after a couple of DuoNeb treatments. He is resting comfortably. He did have a low blood pressure reading after a 2 mg dose of morphine. For future reference, dosing at 1 mg a suffice. Blood pressures have corrected. The patient is resting comfortably. the patient did have significant abdominal distention upon arrival which may have contributed to the sensation of shortness of breath. We did vent his abdominal ostomies and this did help significantly with him resting more comfortably. No evidence of other acute pathology at this time. He will be allowed to return to the long- term care facility. ER warnings were given. Follow up with the facility doctor early next week. I would recommend a breathing treatment at least every 6 hours on this patient in general. He does appear to respond significantly to them.
[2019-06-25 11:56] VITALS: BP 101/55; TEMP 97
== END 2019-06-25 11:20 ==
LOC: ER 08:38
DX: J45.51 Severe persistent asthma with (acute) exacerbation (principal); R06.03 Acute respiratory distress; T17.590A Other foreign object in bronchus causing asphyxiation, initial encounter; R07.89 Other chest pain; F41.9 Anxiety disorder, unspecified; R00.0 Tachycardia, unspecified; I45.10 Unspecified right bundle-branch block; I48.91 Unspecified atrial fibrillation; I10 Essential (primary) hypertension; Z99.11 Dependence on respirator [ventilator] status; Z86.73 Personal history of transient ischemic attack (TIA), and cerebral infarction without residual deficits; Z87.891 Personal history of nicotine dependence; Z79.899 Other long term (current) drug therapy; Z88.2 Allergy status to sulfonamides; Z88.1 Allergy status to other antibiotic agents
CPT/HCPCS: 36415; 71045; 80053; 82550; 82553; 83605; 83735; 83880; 84484; 85025; 85610; 85730; 93005; 94640; 94770; J2270; J7611; J7620

== ENCOUNTER 2019-07-23 07:38 | Emergency (ER) | payer MEDICARE ==
[2019-07-23] MEDS ORDERED: IPRATROPIUM/ALBUTEROL 3 ML VIAL NEB ONE (07:46)
[2019-07-23] MEDS ORDERED: SODIUM CHLORIDE 0.9% 1000ML 1,000 ML IVS ONE ×2 (09:16→09:35)
[2019-07-23] MEDS ORDERED: ONDANSETRON INJ 4 MG/2 ML VIAL IV ONE (09:27)
--- NOTE | 2019-07-23 09:35 | RAD ---
EXAM DESCRIPTION: Abdomen Series CLINICAL HISTORY: nv 2 days COMPARISON: None. FINDINGS: AP supine and upright views of the abdomen show air-filled moderate to severely dilated loops of small bowel throughout the central abdomen. Small amount of air and stool is seen in the left colon. Gastrostomy tube is seen in place. Patient is moderately rotated on this exam. No free intraperitoneal air. Postsurgical changes to the lower lumbar spine are seen with bilateral hip arthroplasties. Single AP portable upright view of the chest shows cardiac silhouette and pulmonary vasculature to be within normal limits. Lungs are normally aerated. Tracheostomy tube is seen in good positioning with tip at the level of the clavicular heads. Asymmetric interstitial thickening in the left perihilar and left lower lobe region are seen. No pleural effusion or pneumothorax. IMPRESSION: Air-filled dilated loops of small bowel throughout the abdomen are seen suggesting high-grade distal small bowel obstruction. Consider further evaluation with CT imaging. Interstitial airspace densities in the left perihilar and left lower lobe region are seen suggesting pneumonia and/or atelectasis. Findings on this exam were called to Dr. Tray Tran at 07/23/2019 9:33 AM ANALYSIS CONSULTANT. Electronically signed by: Jovanni Fields MD 07/23/2019 9:34 AM ANALYSIS CONSULTANT
[2019-07-23] MEDS ORDERED: PIPERACILLIN/TAZOBACTAM 3.375 GM in SODIUM CHLORIDE 0.9% 100ML 100 ML IVPB ONE (10:42)
--- NOTE | 2019-07-23 10:48 | ED.PDOC ---
History of Present Illness - General Chief Complaint: GI Problem Stated Complaint: Vomiting x 3 days, confusion Time Seen by Provider: 07/23/19 07:36 Source: patient Exam Limitations: clinical condition - History of Present Illness Initial Comments: the patient is a 63-year-old male sent over from the long-term care ventilator facility secondary to 3 days of nausea and vomiting. Caregivers also report this morning that he was having some confusion thinking he was in [place]. By the time he arrives here he is alert and oriented. he was apparently just started on Reglan a couple of days ago as well. He definitely has some anxiety, as he usually does. But he is pleasant and cooperative. He does have some significant abdominal distention and diffuse abdominal discomfort. There is some output in his ostomy bag. Vital signs appear stable. The patient is as always complaining of chronic back pain. About a month and a half ago, the patient apparently developed a left-sided pneumothorax with an associated pneumonia. It appears he is finishing up treatment for that with doxycycline. No definite fevers. No new shortness of breath. He is on a ventilator but can function for short periods of time on a trach collar. he has a Quinn catheter and secondary to prostate issues. I believe his colostomy bag is due to a resection from perforated diverticuli. He has chronic left-sided deficits due to a hemorrhagic stroke in the past. Additionally, as has been discovered before he is very sensitive from a blood pressure standpoint to any opiate medications. Historically the patient has a habit forming small blood clots and excessive secretions around his tracheostomy bowl that need to be suctioned periodically or the bulb does not create a adequate seal for ventilation. He also has a history of having multiple ventilator associated pneumonias. He does have a history of COPD. He does have significant anxiety and apparently a history of either schizophrenia or bipolar disorder. He apparently did have seizures after the hemorrhagic stroke. I'm uncertain when his last seizure was. He has also had a history of atrial fibrillation in the past but does not appear to currently be on any blood thinners. He has had multiple bronchial plugs in the past. There is a report of type 2 diabetes and his past but no current medications for diabetes. Timing/Duration: other - 3 days Severity: moderate Improving Factors: nothing Worsening Factors: nothing Associated Symptoms: loss of appetite, malaise, nausea/vomiting Allergies/Adverse Reactions: Allergies Levofloxacin [From Levaquin] Allergy (Verified 07/23/19 08:00) Sulfa Antibiotics Allergy (Verified 07/23/19 08:00) Home Medications: Ambulatory Orders Acetaminophen [Acetaminophen Extra Stren] 1,000 mg PEG Q8H PRN 07/23/19 Acetylcystein 20 % [Mucomyst] 2 ml INH BID 07/23/19 Alum & Mag Hydrox-Simethicone [Mylanta Maximum Strength 400-400-40 mg/5Ml] 30 ml PEG Q8H 07/23/19 Budesonide (Inhalation) [Budesonide] 0.25 mg INH BID 07/23/19 Clonazepam [Clonazepam Odt] 0.25 mg PEG BEDTIME 07/23/19 Clonidine [Clonidine HCl] 0.2 mg TD Q24H 07/23/19 Doxycycline Hyclate 100 mg PEG BID 07/23/19 Duloxetine HCl 60 mg PEG DAILY 07/23/19 Famotidine 40 mg PEG DAILY 07/23/19 Hydrocodone-Acetaminophen [[place] 5-325 mg] 1 tab PO Q6H PRN 07/23/19 Ipratropium-Albuterol [Ipratropium [place]/Albut] 1 pratik IN Q6H 07/23/19 Levetiracetam 1,000 mg PEG BID 07/23/19 Lidocaine 1% [Xylocaine] 2 ml NEB Q6H 07/23/19 Lisinopril 20 mg PEG DAILY 07/23/19 Metoclopramide HCl [Reglan] 10 mg PEG TID 07/23/19 Ondansetron Odt [Zofran ODT] 8 mg PO Q8H PRN 07/23/19 Promethazine HCl 25 mg PEG Q6H PRN 07/23/19 QUEtiapine FUMARATE [SEROquel] 25 mg PEG BEDTIME 07/23/19 Sotalol HCl 80 mg PEG BID 07/23/19 guaiFENesin 100 MG/5 ML [Robitussin] 30 ml PEG Q8H 07/23/19 hydrALAZINE HCl [(None)] 25 mg PEG TID 07/23/19 Review of Systems - Review of Systems Constitutional: States: malaise, weakness EENTM: States: no symptoms reported Respiratory: States: short of breath - chronic Cardiology: States: no symptoms reported Gastrointestinal/Abdominal: States: abdominal pain, nausea, vomiting Genitourinary: States: see HPI Musculoskeletal: States: see HPI Skin: States: no symptoms reported Neurological: States: see HPI Endocrine: States: no symptoms reported All other Systems: No Change from Baseline Past Medical History (General) - Patient Medical History Hx Seizures: No Hx Stroke: Yes Hx Asthma: No Hx of COPD: Yes Hx Cardiac Disorders: Yes - atrial fib Hx Hypertension: Yes Hx Diabetes: Yes Hx Gastroesophageal Reflux: Yes - Hx diverticulitis Surgical History: other - Vaccination History Hx Influenza Vaccination: Yes - 04/28/19 Hx Pneumococcal Vaccination: - Unknown - Social History Hx Tobacco Use: Yes Hx Alcohol Use: No - Activities of Daily Living Senior Care[facility]Assisted [facility] (if applicable):: [facility] Family Medical History - Family History Mother Family History: Unknown Living Status: Unknown Physical Exam - Physical Exam General Appearance: Alert, No apparent distress - no obvious physical distress though he is anxious Eye Exam: bilateral normal Ears, Nose, Throat: hearing grossly normal, normal pharynx Neck: non-tender, supple, other - tracheostomy is in place Respiratory: no respiratory distress, no accessory muscle use, other - mild scattered rhonchi. Fair air movement on the ventilator. Breasts are significantly more shallow when left to a trach collar. Cardiovascular/Chest: normal peripheral pulses, regular rate, rhythm, no edema Peripheral Pulses: radial,right: 2+, radial,left: 2+ Gastrointestinal/Abdominal: other - distended and tympanic. Diffuse discomfort to palpation. G-tube and ostomy bag are in place. Rectal Exam: deferred Extremity: no calf tenderness, normal capillary refill, other - chronic left- sided deficits related to his previous stroke. He seems to move the right extremity much better. Neurologic: order dispatcher II-XII nml as tested, alert, oriented x 3, other - chronic changes related to his previous hemorrhagic stroke. He does have significant anxiety. Skin Exam: normal color Comments: Vital Signs - 8 hr 07/23/19 07/23/19 07/23/19 07:38 08:00 09:00 Temperature 97.8 F Pulse Rate [ 69 88 73 Right Radial] Respiratory 25 H 22 22 Rate Blood Pressure 121/79 138/83 119/67 [Right Arm] O2 Sat by Pulse 94 L 92 L 91 L Oximetry 07/23/19 10:00 Temperature Pulse Rate [ 95 H Right Radial] Respiratory 22 Rate Blood Pressure 109/67 [Right Arm] O2 Sat by Pulse 95 Oximetry Progress - Progress Progress: 07/23/19 10:52 the patient's 63-year-old male presented to emergency room with what appears to be a small bowel obstruction of about 3 days' duration. He is ventilator dependent but his respiratory status appears to be essentially baseline. We were able to suction a significant amount of material adjacent to the tracheostomy bulb and his tracheostomy is now sealing better for ventilation purposes. his G-tube was removed and a NG tube was placed in its place to about 14 cm for decompression. We have removed about a liter of material so far. He is feeling a little better. White blood cell count is mildly elevated at 16,000. The lowest we have him on record here is 12,000. He is already on doxycycline apparently to finish up treatment for pneumonia. He did receive a dose of Zosyn here. Blood and sputum cultures have been performed. Quinn catheter remains in place. The patient is being transferred for a small bowel obstruction. We have not had any further vomiting since the start of decompression. He has received about 1200 cc of IV fluid so far. Transferred for higher level of care. - Results/Orders Results/Orders: acute abdominal series shows questionable left perihilar infiltrate. Again the patient did have a pneumothorax and pneumonia on that side about a month ago. Abdominal x-rays show what appear to be a small bowel obstruction. No perforation. Laboratory Tests 07/23/19 07/23/19 07/23/19 08:30 08:50 08:50 WBC 16.2 H RBC 4.41 L Hgb 11.0 L Hct 34.8 L MCV 78.8 L MCH 24.9 L MCHC 31.7 L RDW 17.8 H Plt Count 643 H MPV 7.8 Absolute Neuts (auto) 12.80 H Absolute Lymphs (auto) 1.80 Absolute Monos (auto) 1.50 H Absolute Eos (auto) 0.00 Absolute Basos (auto) 0.10 Neutrophils % 79.2 H Lymphocytes % 10.9 L Monocytes % 9.1 H Eosinophils % 0.2 L Basophils % 0.6 Normal RBC Morphology Stain quality accept Sodium 140 Potassium 4.8 Chloride 92 L Carbon Dioxide 33 H Anion Gap 19.8 H BUN 41 H Creatinine 1.07 BUN/Creatinine Ratio 38.3 H Random Glucose 145 H Serum Osmolality 292.1 Lactic Acid 1.4 Calcium 10.2 Magnesium 2.5 Total Bilirubin 0.4 AST 20 ALT 23 Alkaline Phosphatase 76 Creatine Kinase 29 L CK-MB (CK-2) 4.2 CK-MB (CK-2) % Not Reportable Troponin I < 0.02 B-Natriuretic Peptide 166.0 H Serum Total Protein 8.7 H Albumin 3.1 L Globulin 5.6 H Albumin/Globulin Ratio 0.6 L Amylase 46 Lipase 29 Departure - Departure Clinical Impression: Ventilator dependent, Small bowel obstruction Disposition: Transfer to Hospital Condition: Fair Departure Forms: ED Discharge - Pt. Copy, Patient Portal Self Enrollment Referrals: DAILY QUINONES [Primary Care Provider] - 1-2 Weeks Home Medications: Ambulatory Orders Acetaminophen [Acetaminophen Extra Stren] 1,000 mg PEG Q8H PRN 07/23/19 Acetylcystein 20 % [Mucomyst] 2 ml INH BID 07/23/19 Alum & Mag Hydrox-Simethicone [Mylanta Maximum Strength 400-400-40 mg/5Ml] 30 ml PEG Q8H 07/23/19 Budesonide (Inhalation) [Budesonide] 0.25 mg INH BID 07/23/19 Clonazepam [Clonazepam Odt] 0.25 mg PEG BEDTIME 07/23/19 Clonidine [Clonidine HCl] 0.2 mg TD Q24H 07/23/19 Doxycycline Hyclate 100 mg PEG BID 07/23/19 Duloxetine HCl 60 mg PEG DAILY 07/23/19 Famotidine 40 mg PEG DAILY 07/23/19 Hydrocodone-Acetaminophen [[place] 5-325 mg] 1 tab PO Q6H PRN 07/23/19 Ipratropium-Albuterol [Ipratropium [place]/Albut] 1 pratik IN Q6H 07/23/19 Levetiracetam 1,000 mg PEG BID 07/23/19 Lidocaine 1% [Xylocaine] 2 ml NEB Q6H 07/23/19 Lisinopril 20 mg PEG DAILY 07/23/19 Metoclopramide HCl [Reglan] 10 mg PEG TID 07/23/19 Ondansetron Odt [Zofran ODT] 8 mg PO Q8H PRN 07/23/19 Promethazine HCl 25 mg PEG Q6H PRN 07/23/19 QUEtiapine FUMARATE [SEROquel] 25 mg PEG BEDTIME 07/23/19 Sotalol HCl 80 mg PEG BID 07/23/19 guaiFENesin 100 MG/5 ML [Robitussin] 30 ml PEG Q8H 07/23/19 hydrALAZINE HCl [(None)] 25 mg PEG TID 07/23/19 Transfer to Outside Facility - Transfer Information Decision to Transfer Date: 07/23/19 Decision to Transfer Time: 10:56 Reason for Transfer: required specialist not available Accepting Provider:: dr lemus Accepting Facility: [facility]
[2019-07-23] MEDS ORDERED: PIPERACILLIN/TAZOBACTAM 3.375 GM VIAL IVPB ONE (10:59)
[2019-07-23] MEDS ORDERED: SODIUM CHLORIDE 0.9% 100ML 100 ML IVPB ONE (10:59)
[2019-07-23 11:07] VITALS: TEMP 98; O2SAT 99
[2019-07-23 12:22] VITALS: BP 122/77
== END 2019-07-23 11:35 | disposition short-term general hospital (02) ==
LOC: ER 07:38
DX: K56.609 Unspecified intestinal obstruction, unspecified as to partial versus complete obstruction (principal); R11.2 Nausea with vomiting, unspecified; I45.81 Long QT syndrome; R41.0 Disorientation, unspecified; I69.398 Other sequelae of cerebral infarction; F41.9 Anxiety disorder, unspecified; J44.9 Chronic obstructive pulmonary disease, unspecified; R56.9 Unspecified convulsions; I10 Essential (primary) hypertension; K21.9 Gastro-esophageal reflux disease without esophagitis; Z93.3 Colostomy status; Z99.11 Dependence on respirator [ventilator] status; Z93.1 Gastrostomy status; Z87.891 Personal history of nicotine dependence; Z79.899 Other long term (current) drug therapy; Z87.01 Personal history of pneumonia (recurrent)
CPT/HCPCS: 36415; 74019; 80053; 81001; 82150; 82550; 82553; 83605; 83690; 83735; 83880; 84484; 85025; 87040; 87077; 87086; 87186; 87502; 93005; 94002; 94640; 94770; J2405; J2543; J7030; J7050; J7620

== ENCOUNTER 2019-08-15 16:59 | Emergency (ER) | payer MEDICARE ==
[2019-08-15 17:19] VITALS: BP 0/0; TEMP 0; O2SAT 0
--- NOTE | 2019-08-15 17:19 | ED.PDOC ---
History of Present Illness - General Chief Complaint: Cardiac Respiratory Arrest Stated Complaint: Cardiac arrest/asystole Time Seen by Provider: 08/15/19 17:17 - History of Present Illness Initial Comments: 63-year-old male arrives via EMS CPR in progress after being found unresponsive, [facility]. Unclear events prior to CPR initiated, received bystander CPR, on EMS arrival was in asystole, chest compression assist device applied, i/o access obtained, 3 rounds of epi provided enroute while receiving bag-trach ventilation. no change in rhythm. Hx is otherwise limited. Allergies/Adverse Reactions: Allergies Levofloxacin [From Levaquin] Allergy (Verified 07/23/19 08:00) Sulfa Antibiotics Allergy (Verified 07/23/19 08:00) Home Medications: Ambulatory Orders Acetaminophen [Acetaminophen Extra Stren] 1,000 mg PEG Q8H PRN 07/23/19 Acetylcystein 20 % [Mucomyst] 2 ml INH BID 07/23/19 Alum & Mag Hydrox-Simethicone [Mylanta Maximum Strength 400-400-40 mg/5Ml] 30 ml PEG Q8H 07/23/19 Budesonide (Inhalation) [Budesonide] 0.25 mg INH BID 07/23/19 Clonazepam [Clonazepam Odt] 0.25 mg PEG BEDTIME 07/23/19 Clonidine [Clonidine HCl] 0.2 mg TD Q24H 07/23/19 Doxycycline Hyclate 100 mg PEG BID 07/23/19 Duloxetine HCl 60 mg PEG DAILY 07/23/19 Famotidine 40 mg PEG DAILY 07/23/19 Hydrocodone-Acetaminophen [[place] 5-325 mg] 1 tab PO Q6H PRN 07/23/19 Ipratropium-Albuterol [Ipratropium [place]/Albut] 1 pratik IN Q6H 07/23/19 Levetiracetam 1,000 mg PEG BID 07/23/19 Lidocaine 1% [Xylocaine] 2 ml NEB Q6H 07/23/19 Lisinopril 20 mg PEG DAILY 07/23/19 Metoclopramide HCl [Reglan] 10 mg PEG TID 07/23/19 Ondansetron Odt [Zofran ODT] 8 mg PO Q8H PRN 07/23/19 Promethazine HCl 25 mg PEG Q6H PRN 07/23/19 QUEtiapine FUMARATE [SEROquel] 25 mg PEG BEDTIME 07/23/19 Sotalol HCl 80 mg PEG BID 07/23/19 guaiFENesin 100 MG/5 ML [Robitussin] 30 ml PEG Q8H 07/23/19 hydrALAZINE HCl [(None)] 25 mg PEG TID 07/23/19 Review of Systems - Review of Systems Review of Systems: 08/15/19 17:31 limited by his critical illness, CPR underway Past Medical History (General) - Patient Medical History Hx Seizures: No Hx Stroke: Yes Hx Asthma: No Hx of COPD: Yes Hx Cardiac Disorders: Yes - atrial fib Hx Hypertension: Yes Hx Diabetes: Yes Hx Gastroesophageal Reflux: Yes - Hx diverticulitis - Vaccination History Hx Influenza Vaccination: Yes - 04/28/19 Hx Pneumococcal Vaccination: - Unknown - Social History Hx Tobacco Use: Yes Hx Alcohol Use: No Family Medical History - Family History Mother Family History: Unknown Living Status: Unknown Physical Exam - Physical Exam Comments: General Appearance: Patient is comatose, appears critically ill, chest comp device attached, activated Skin: Warm and dry. No diaphoresis. No rash or other lesions. Head: large bony deficit on R scalp, well-healed craniotomy. Eyes: pupils fixed and dilated. ENT: Oropharynx dry. Neck: trach midline, trach w/ vent bag attached to trach collar. Respiratory: distant BS w/ bagging Cardiovascular: no pulse noted in fem artery w/ compressions GI: Abdomen distended, gtube in place Musculoskeletal: Extremities- atrophy, contracted Neurological: comatose, GCS3T. Progress - Progress Progress: 08/15/19 17:36 arrives ACLS in progress, continued for full cycle of most recent epi, compressions held asystole, bedside sono confirms cardiac standstill. further resusc term for futility. Departure - Departure Clinical Impression: Cardiac arrest Time of Disposition: 17:15 Disposition: Referrals: DAILY QUINONES [Primary Care Provider] - 1-2 Weeks Home Medications: Ambulatory Orders Acetaminophen [Acetaminophen Extra Stren] 1,000 mg PEG Q8H PRN 07/23/19 Acetylcystein 20 % [Mucomyst] 2 ml INH BID 07/23/19 Alum & Mag Hydrox-Simethicone [Mylanta Maximum Strength 400-400-40 mg/5Ml] 30 ml PEG Q8H 07/23/19 Budesonide (Inhalation) [Budesonide] 0.25 mg INH BID 07/23/19 Clonazepam [Clonazepam Odt] 0.25 mg PEG BEDTIME 07/23/19 Clonidine [Clonidine HCl] 0.2 mg TD Q24H 07/23/19 Doxycycline Hyclate 100 mg PEG BID 07/23/19 Duloxetine HCl 60 mg PEG DAILY 07/23/19 Famotidine 40 mg PEG DAILY 07/23/19 Hydrocodone-Acetaminophen [[place] 5-325 mg] 1 tab PO Q6H PRN 07/23/19 Ipratropium-Albuterol [Ipratropium [place]/Albut] 1 pratik IN Q6H 07/23/19 Levetiracetam 1,000 mg PEG BID 07/23/19 Lidocaine 1% [Xylocaine] 2 ml NEB Q6H 07/23/19 Lisinopril 20 mg PEG DAILY 07/23/19 Metoclopramide HCl [Reglan] 10 mg PEG TID 07/23/19 Ondansetron Odt [Zofran ODT] 8 mg PO Q8H PRN 07/23/19 Promethazine HCl 25 mg PEG Q6H PRN 07/23/19 QUEtiapine FUMARATE [SEROquel] 25 mg PEG BEDTIME 07/23/19 Sotalol HCl 80 mg PEG BID 07/23/19 guaiFENesin 100 MG/5 ML [Robitussin] 30 ml PEG Q8H 07/23/19 hydrALAZINE HCl [(None)] 25 mg PEG TID 07/23/19 Comments: Jonah Mueller MD Emergency Medicine #[id number]
== END 2019-08-15 17:09 | disposition expired ==
LOC: ER 16:59
DX: I46.9 Cardiac arrest, cause unspecified (principal); J44.9 Chronic obstructive pulmonary disease, unspecified; I48.91 Unspecified atrial fibrillation; I10 Essential (primary) hypertension; E11.9 Type 2 diabetes mellitus without complications; K21.9 Gastro-esophageal reflux disease without esophagitis; Z87.891 Personal history of nicotine dependence; Z86.73 Personal history of transient ischemic attack (TIA), and cerebral infarction without residual deficits; Z79.899 Other long term (current) drug therapy; Z88.1 Allergy status to other antibiotic agents; Z88.2 Allergy status to sulfonamides